=== PATIENT | female | born 1965 | race Caucasian/White ===

== ENCOUNTER 2020-04-22 17:09 | Emergency (ER) | payer MEDICARE ==
[~2020-04-22 17:09] MED LIST: AUGMENTIN 875-1 EACH PO; BACTRIM DS TAB1 EACH PO; BISOPROLOL-HCT1 EAC1 PO; CLEOCIN HCL300 MG PO; CYCLOBENZAPRINE10 MG PO; FERROUS SULFAT325 M2 PO; GABAPENTIN600 MG PO; K-TAB ER10 MEQ PO; LASIX20 MG PO; LEFLUNOMIDE10 MG PO; LEFLUNOMIDE20 MG PO; MACRODANTIN100 MG PO; MONTELUKAST SOD10 MG PO; NORCO 10-325 T1 EACH PO; ORENCIA125 MG/1 M SC; OTREXUP 1515 MG/0.4 SC; OTREXUP 1515 MG/0.4 SQ; PERCOCET 5-3251 EACH PO; PREDNISONE10 MG PO; PROTONIX40 MG PO; SINGULAIR10 MG PO; ZIAC 2.5-6.251 EACH PO; ZOFRAN 4 MG TAB4 MG PO
[2020-04-22 18:14] LABS: HEMOGLOBIN 8.5 gm/dl (12.3-15.3); RED BLOOD COUNT 3.2 M/UL (4.00-5.10); WHITE BLOOD COUNT 6.9 K/UL (4.5-11.0)
[2020-04-22 18:41] LABS: BUN/CREATININE RATIO 32 (0-10)
[2020-04-22] MEDS ORDERED: IRON325 M1 PO (21:54)
[2020-08-04] MEDS ORDERED: ZOFRAN ODT 4 MG4 MG PO (06:44)
[2020-08-04] MEDS ORDERED: MELOXICAM15 MG PO (06:44)
[2020-08-04] MEDS ORDERED: PERCOCET 5-3251 EACH PO (06:44)
[2020-08-04] MEDS ORDERED: GABAPENTIN600 MG PO (06:45)
[2020-08-04] MEDS ORDERED: MAGNESIUM30 MG PO (06:46)
[2020-08-04] MEDS ORDERED: SUCRALFATE1 GM PO (06:46)
== END 2020-04-22 22:31 | disposition home or self-care (01) ==
LOC: ER1 17:09
PROVIDERS: Emergency Medicine
DX: I50.9 Heart failure, unspecified (principal); S42.292A Other displaced fracture of upper end of left humerus, initial encounter for closed fracture; S42.212A Unspecified displaced fracture of surgical neck of left humerus, initial encounter for closed fracture; R79.1 Abnormal coagulation profile; D64.9 Anemia, unspecified; X58.XXXA Exposure to other specified factors, initial encounter
CPT/HCPCS: 71045; 80053; 82550; 82553; 83690; 83735; 83874; 83880; 84484; 85025; 85379; 93005; 96374; 99284; J1940; Q9967

== ENCOUNTER → 2020-05-09 | Outpatient (CLI) | payer MEDICARE ==
[~2020-05-09] MED LIST changes: +IRON325 M1 PO; +MAGNESIUM30 MG PO; +MELOXICAM15 MG PO; +MYRBETRIQ25 MG PO; +SUCRALFATE1 GM PO; +SULFAMETHOXAZO1 EACH PO; +ZANAFLEX 4 MG TA4 MG PO; +ZOFRAN ODT 4 MG4 MG PO; +ZYVOX600 MG PO
== END | disposition home or self-care (01) ==
LOC: WCC 11:00
PROC: 0HBMXZZ Excision of Right Foot Skin, External Approach (ICD-10-PCS; principal; 2020-05-09)
DX: I83.015 Varicose veins of right lower extremity with ulcer other part of foot (principal); L97.519 Non-pressure chronic ulcer of other part of right foot with unspecified severity; E66.09 Other obesity due to excess calories; I87.2 Venous insufficiency (chronic) (peripheral); Z88.8 Allergy status to other drugs, medicaments and biological substances; D64.9 Anemia, unspecified; G47.30 Sleep apnea, unspecified; M06.9 Rheumatoid arthritis, unspecified; M19.90 Unspecified osteoarthritis, unspecified site; Z68.34 Body mass index [BMI] 34.0-34.9, adult
CPT/HCPCS: G0463

== ENCOUNTER → 2020-05-16 | Outpatient (CLI) | payer MEDICARE | LOC: WCC 11:00 | PROC: 0JBQ0ZZ Excision of Right Foot Subcutaneous Tissue and Fascia, Open Approach (ICD-10-PCS; principal; 2020-05-16) | DX: I83.014 Varicose veins of right lower extremity with ulcer of heel and midfoot (principal); L97.412 Non-pressure chronic ulcer of right heel and midfoot with fat layer exposed; I96 Gangrene, not elsewhere classified; I87.2 Venous insufficiency (chronic) (peripheral); D64.9 Anemia, unspecified; G47.30 Sleep apnea, unspecified; I49.9 Cardiac arrhythmia, unspecified; I95.9 Hypotension, unspecified; M06.9 Rheumatoid arthritis, unspecified; M19.90 Unspecified osteoarthritis, unspecified site; E66.09 Other obesity due to excess calories; Z68.34 Body mass index [BMI] 34.0-34.9, adult; Z88.6 Allergy status to analgesic agent; Z79.891 Long term (current) use of opiate analgesic; Z79.2 Long term (current) use of antibiotics; Z79.52 Long term (current) use of systemic steroids; Z79.899 Other long term (current) drug therapy ==

== ENCOUNTER → 2020-06-06 | Outpatient (CLI) | payer MEDICARE | LOC: WCC 11:00 | PROC: 0JBQ0ZZ Excision of Right Foot Subcutaneous Tissue and Fascia, Open Approach (ICD-10-PCS; principal; 2020-06-06) | DX: I83.014 Varicose veins of right lower extremity with ulcer of heel and midfoot (principal); L89.613 Pressure ulcer of right heel, stage 3; I96 Gangrene, not elsewhere classified; L97.412 Non-pressure chronic ulcer of right heel and midfoot with fat layer exposed; I87.2 Venous insufficiency (chronic) (peripheral); D64.9 Anemia, unspecified; G47.30 Sleep apnea, unspecified; I49.9 Cardiac arrhythmia, unspecified; I10 Essential (primary) hypertension; M06.9 Rheumatoid arthritis, unspecified; M19.90 Unspecified osteoarthritis, unspecified site; E66.09 Other obesity due to excess calories; Z68.34 Body mass index [BMI] 34.0-34.9, adult; Z88.6 Allergy status to analgesic agent; Z79.891 Long term (current) use of opiate analgesic; Z79.2 Long term (current) use of antibiotics; Z79.52 Long term (current) use of systemic steroids; Z79.899 Other long term (current) drug therapy ==

== ENCOUNTER → 2020-06-13 | Outpatient (CLI) | payer MEDICARE | LOC: WCC 11:00 | DX: L97.519 Non-pressure chronic ulcer of other part of right foot with unspecified severity (principal) | CPT/HCPCS: 87070; 87077; 87186; 87205 ==

== ENCOUNTER → 2020-06-16 | Outpatient (CLI) | payer MEDICARE | LOC: WCC 10:00 | DX: L97.519 Non-pressure chronic ulcer of other part of right foot with unspecified severity (principal); L89.619 Pressure ulcer of right heel, unspecified stage | CPT/HCPCS: G0463 ==

== ENCOUNTER → 2020-06-16 | Outpatient (CLI) | payer MEDICARE | LOC: ECHO 12:00 → NM 12:00 | DX: R06.02 Shortness of breath (principal) | CPT/HCPCS: 78452; A9502; J2785 ==

== ENCOUNTER → 2020-06-20 | Outpatient (CLI) | payer MEDICARE | LOC: WCC 11:00 | PROC: 0KBV0ZZ Excision of Right Foot Muscle, Open Approach (ICD-10-PCS; principal; 2020-06-20) | DX: I96 Gangrene, not elsewhere classified (principal); L89.613 Pressure ulcer of right heel, stage 3; L97.509 Non-pressure chronic ulcer of other part of unspecified foot with unspecified severity; I83.015 Varicose veins of right lower extremity with ulcer other part of foot; L97.513 Non-pressure chronic ulcer of other part of right foot with necrosis of muscle; I87.2 Venous insufficiency (chronic) (peripheral); D64.9 Anemia, unspecified; G47.30 Sleep apnea, unspecified; I49.9 Cardiac arrhythmia, unspecified; I10 Essential (primary) hypertension; M06.9 Rheumatoid arthritis, unspecified; M19.90 Unspecified osteoarthritis, unspecified site; E66.09 Other obesity due to excess calories; Z68.34 Body mass index [BMI] 34.0-34.9, adult; Z88.6 Allergy status to analgesic agent; Z79.891 Long term (current) use of opiate analgesic; Z79.2 Long term (current) use of antibiotics; Z79.899 Other long term (current) drug therapy ==

== ENCOUNTER → 2020-08-04 | Day surgery (SDC) | payer MEDICARE ==
[2020-08-04 07:59] LABS: HEMOGLOBIN 9.6 gm/dl (12.3-15.3); RED BLOOD COUNT 4.21 M/UL (4.00-5.10); WHITE BLOOD COUNT 5.5 K/UL (4.5-11.0)
[2020-08-04 08:14] LABS: BUN/CREATININE RATIO 23 (0-10)
== END | disposition home or self-care (01) ==
LOC: OR 06:15
PROVIDERS: Surgery
DX: I87.2 Venous insufficiency (chronic) (peripheral) (principal); I25.10 Atherosclerotic heart disease of native coronary artery without angina pectoris; K21.9 Gastro-esophageal reflux disease without esophagitis; D64.9 Anemia, unspecified; I10 Essential (primary) hypertension; E66.01 Morbid (severe) obesity due to excess calories; M19.90 Unspecified osteoarthritis, unspecified site
CPT/HCPCS: 36415; 71045; 80053; 81001; 85025; 85610; 85730; 86850; 86900; 86901; 93005; J0690; J1100; J1644; J2001; J2405; J3010; J7040; J7120; Q9962

== ENCOUNTER → 2020-08-08 | Outpatient (CLI) | payer MEDICARE | LOC: US 10:40 | DX: I82.811 Embolism and thrombosis of superficial veins of right lower extremity (principal) | CPT/HCPCS: 93971 ==

== ENCOUNTER 2020-10-13 19:19 | Inpatient (IN) | payer MEDICARE ==
[~2020-10-13] VITALS: Ht 170.2 cm; Wt 95.3 kg
[~2020-10-13 19:19] MED LIST changes: -MYRBETRIQ25 MG PO; -SULFAMETHOXAZO1 EACH PO; -ZANAFLEX 4 MG TA4 MG PO; -ZYVOX600 MG PO
[2020-10-13 20:57] LABS: HEMOGLOBIN 11.6 gm/dl (12.3-15.3); RED BLOOD COUNT 4.47 M/UL (4.00-5.10); WHITE BLOOD COUNT 7.2 K/UL (4.5-11.0)
[2020-10-13 21:10] LABS: BUN/CREATININE RATIO 24 (0-10)
[2020-10-14 08:43] LABS: BUN/CREATININE RATIO 21 (0-10)
[2020-10-14] MEDS ORDERED: SULFAMETHOXAZO1 EACH PO (10:06)
[2020-10-14] MEDS ORDERED: ZANAFLEX 4 MG TA4 MG PO (10:08)
[2020-10-14] MEDS ORDERED: MYRBETRIQ25 MG PO (10:09)
[2020-10-15 04:27] LABS: HEMOGLOBIN 11.2 gm/dl (12.3-15.3); RED BLOOD COUNT 4.39 M/UL (4.00-5.10)
[2020-10-15 04:52] LABS: WHITE BLOOD COUNT 5.3 K/UL (4.5-11.0)
[2020-10-15 05:06] LABS: BUN/CREATININE RATIO 21 (0-10)
[2020-10-16 04:12] LABS: HEMOGLOBIN 11.3 gm/dl (12.3-15.3); RED BLOOD COUNT 4.44 M/UL (4.00-5.10); WHITE BLOOD COUNT 5.3 K/UL (4.5-11.0)
[2020-10-16 04:44] LABS: BUN/CREATININE RATIO 17 (0-10)
[2020-10-17 08:48] LABS: HEMOGLOBIN 11.3 gm/dl (12.3-15.3); RED BLOOD COUNT 4.4 M/UL (4.00-5.10); WHITE BLOOD COUNT 4.6 K/UL (4.5-11.0)
[2020-10-17 09:04] LABS: BUN/CREATININE RATIO 14 (0-10)
[2020-10-18 03:53] LABS: HEMOGLOBIN 11.1 gm/dl (12.3-15.3); RED BLOOD COUNT 4.32 M/UL (4.00-5.10); WHITE BLOOD COUNT 4.7 K/UL (4.5-11.0)
[2020-10-18 04:20] LABS: BUN/CREATININE RATIO 15 (0-10)
[2020-10-19 04:40] LABS: HEMOGLOBIN 12.1 gm/dl (12.3-15.3); RED BLOOD COUNT 4.7 M/UL (4.00-5.10); WHITE BLOOD COUNT 5.2 K/UL (4.5-11.0)
[2020-10-19 04:55] LABS: BUN/CREATININE RATIO 19 (0-10)
[2020-10-19] MEDS ORDERED: ZYVOX600 MG PO (11:05)
== END 2020-10-19 13:57 | disposition home or self-care (01) | DRG 593 ==
LOC: ER1 19:19 → M/S 23:49 → CDU 23:49 → M/S 23:49
PROVIDERS: Internal Medicine; Physician Assistant Medical; ADMIT Internal Medicine
DX: L97.519 Non-pressure chronic ulcer of other part of right foot with unspecified severity (principal); D84.89 Other immunodeficiencies; L03.115 Cellulitis of right lower limb; L03.116 Cellulitis of left lower limb; M06.9 Rheumatoid arthritis, unspecified; D64.89 Other specified anemias; I73.9 Peripheral vascular disease, unspecified; G89.4 Chronic pain syndrome; Z96.643 Presence of artificial hip joint, bilateral; G62.9 Polyneuropathy, unspecified; K21.9 Gastro-esophageal reflux disease without esophagitis; R29.6 Repeated falls; I10 Essential (primary) hypertension; E87.6 Hypokalemia; G62.89 Other specified polyneuropathies; Z20.822 Contact with and (suspected) exposure to COVID-19; Z22.322 Carrier or suspected carrier of Methicillin resistant Staphylococcus aureus; Z98.1 Arthrodesis status; Z86.73 Personal history of transient ischemic attack (TIA), and cerebral infarction without residual deficits; Z98.51 Tubal ligation status
CPT/HCPCS: 36415; 73502; 73701; 73718; 80048; 80053; 80061; 80202; 82550; 82553; 82607; 82746; 83036; 83540; 83605; 83735; 83874; 84100; 84484; 85025; 85027; 85045; 85652; 86140; 87040; 87070; 87077; 87186; 87205; 93005; 96365; 96366; 96367; 96368; 96372; 96375; 96376; 99285; G0378; J0692; J1650; J3370; J7030; J7070; Q9967; U0002

== ENCOUNTER → 2020-11-22 | Outpatient (CLI) | payer MEDICARE ==
[~2020-11-22] MED LIST changes: +MYRBETRIQ25 MG PO; +SULFAMETHOXAZO1 EACH PO; +ZANAFLEX 4 MG TA4 MG PO; +ZYVOX600 MG PO
== END ==
LOC: LAB 13:34
DX: M46.36 Infection of intervertebral disc (pyogenic), lumbar region (principal)
CPT/HCPCS: 36415; 85652; 86140

== ENCOUNTER → 2020-11-25 | Outpatient (CLI) | payer MEDICARE | LOC: EMI 15:54 | DX: M51.36 Other intervertebral disc degeneration, lumbar region (principal); M41.9 Scoliosis, unspecified; M43.16 Spondylolisthesis, lumbar region | CPT/HCPCS: 72148 ==

== ENCOUNTER → 2020-12-13 | Outpatient (CLI) | payer MEDICARE | LOC: WCC 14:00 | DX: S91.301D Unspecified open wound, right foot, subsequent encounter (principal); S91.104D Unspecified open wound of right lesser toe(s) without damage to nail, subsequent encounter; I87.2 Venous insufficiency (chronic) (peripheral); R60.0 Localized edema; Z88.6 Allergy status to analgesic agent; E66.01 Morbid (severe) obesity due to excess calories; Z68.33 Body mass index [BMI] 33.0-33.9, adult; X58.XXXD Exposure to other specified factors, subsequent encounter | CPT/HCPCS: G0463 ==

== ENCOUNTER → 2021-02-02 | Outpatient (CLI) | payer MEDICARE | LOC: EXRD 10:16 | DX: M05.79 Rheumatoid arthritis with rheumatoid factor of multiple sites without organ or systems involvement (principal); R93.6 Abnormal findings on diagnostic imaging of limbs | CPT/HCPCS: 73130; 73630 ==

== ENCOUNTER → 2021-04-26 | Outpatient (CLI) | payer OTHER | LOC: KOH-I 04-25 09:45 → US 08:30 → KOH-I 08:57 → US 10:00 | DX: I87.2 Venous insufficiency (chronic) (peripheral) (principal); K76.0 Fatty (change of) liver, not elsewhere classified; I73.9 Peripheral vascular disease, unspecified; K80.20 Calculus of gallbladder without cholecystitis without obstruction | CPT/HCPCS: 76700; 93925 ==